=== PATIENT | female | born 1990 | race African-American/Black ===

== ENCOUNTER 2019-10-30 14:38 | Emergency (ER) | payer OTHER ==
[~2019-10-30] VITALS: Ht 162.6 cm; Wt 130.2 kg
--- OUTSIDE RECORDS SUMMARY | 2019-10-30 14:41 | XMS REPORT ---
[facility] Address Unknown Phone Unavailable Care Team Providers Care Liaison Planner Name Role Phone Unavailable Unavailable Problems This patient has no known problems. Allergies, Adverse Reactions, Alerts This patient has no known allergies or adverse reactions. Medications This patient has no known medications. Encounters Start Date/Time End Date/Time Encounter Type Admission Type Attending [facility] Care Facility Care Department Encounter ID 2019-09-23 16:22:00 Inpatient [facility] [id number] 2019-09-20 16:06:00 2019-09-20 16:06:00 Emergency E [facility] [id number] 2019-07-27 22:07:00 2019-07-27 22:07:00 Emergency E [facility] [place] [facility] [id number] 2019-05-14 19:21:00 2019-05-14 19:21:[address] [id number]
--- OUTSIDE RECORDS SUMMARY | 2019-10-30 14:41 | XMS REPORT | Summary of Care ---
Author Author ANTHONY Pritchard, RADHA Vitale Unknown Address Unknown Phone Unavailable Care Team Providers Care Service Delivery Director Name Role Phone NISHA Min.P., SHIFAT Unavailable Unavailable TEA Pritchard, KAILYN Unavailable Unavailable JEANNIE Pritchard, CHIKARA Unavailable Unavailable CAMELIA Pritchard, LISE Unavailable Unavailable ARLETTE Pritchard, GABY Unavailable Unavailable ISAC Pritchard, BOBO Unavailable Unavailable RENETTA Mckeon, MARCOS Unavailable Unavailable DANITA JOB LITHOGRAPHER, GAGE Unavailable Unavailable [facility] SHIF[facility] Unavailable Unavailable TAMIKA POLLARD, LOAN [employer] Unavailable Unavailable LILLIAM POLLARD, FANNY Jenkins Unavailable Unavailable CAIT POLLARD LA, KALENA Unavailable Unavailable MUKESH POLLARD LA, CRYSTAL D Unavailable Unavailable Unavailable Unavailable Functional Status Name Dates Details Functional status health issues are not documented Status: Name Dates Details Cognitive status health issues are not documented Status: Problems Name Dates Details Bacterial vaginitis (616.10, N76.0) Status: Active Depression screening (V79.0, Z13.31) Status: Active Positive depression screening (796.4, Z13.31) Status: Active Nausea and vomiting during (643.90, O21.9) Status: Active Nexplanon removal (V25.43, Z30.46) Status: Active Anemia (285.9, D64.9) Status: Active History of delivery, currently (654.20, O34.219) Status: Active Maternal morbid obesity in first trimester, antepartum (649.13, O99.211) Status: Active Normal (V22.2, Z34.90) Status: Active Encounter for supervision of other normal (V22.1, Z34.80) Status: Active History of pre-eclampsia in prior , currently (V23.49, O09.299) Status: Active exam (V24.2, Z39.2) Status: Active Medications Name Dates Details metroNIDAZOLE 500 MG Oral Tablet TAKE 1 TABLET TWICE DAILY UNTIL FINISHED. Quantity: 14 CAMERON N.P., SHIFAT * Start : 05-Jan-2019 Active Diclegis 10-10 MG Oral Tablet Delayed Release * Refills: 0 Active Diclegis 10-10 MG Oral Tablet Delayed Release TAKE 1 TABLET BEDTIME * Quantity: 30 Refills: 1 NASAB M.DMelisa, KAILYN * Start : 25-Mar-2019 Active Phenazopyridine HCl - 200 MG Oral Tablet TAKE 1 TABLET 3 TIMES DAILY AFTER MEALS NEEDED * Quantity: 60 Refills: 0 IKWUAGWU Vasyl.Shawna, GABY * Start : 28-Mar-2019 Active Vitamin B6 250 MG Oral Tablet TAKE 1 TABLET DAILY DIRECTED. * Quantity: 30 Refills: 0 IKWUAGWU M.Alice., GABY * Start : 28-Mar-2019 Active Aspirin 81 MG Oral Tablet Chewable USE DIRECTED. * Quantity: 30 Refills: 0 ISAC M.Shawna, BOBO * Start : 05-May-2019 Active Vitafol Ultra 29-0.6-0.4-200 MG Oral Capsule TAKE 1 CAPSULE DAILY * Quantity: 30 Refills: 11 CAMELIA M.D., LISE * Start : 14-Jun-2019 Active Aspirin 81 MG Oral Tablet Chewable CHEW AND SWALLOW 1 TABLET DAILY. * Quantity: 30 Refills: 4 CAMELIA M.D., LISE * Start : 14-Jun-2019 Active Ferrous Sulfate 325 (65 Fe) MG Oral Tablet TAKE 1 TABLET 3 TIMES DAILY WITH FOOD. * Quantity: 90 Refills: 3 KOTHARE D.O., MARCOS * Start : 14-Jun-2019 Active Colace 100 MG Oral Capsule TAKE 1 CAPSULE TWICE DAILY. * Quantity: 30 Refills: 0 CAMELIA M.D., LISE * Start : 14-Jun-2019 Active Allergies and Adverse Reactions Name Dates Details No Known Drug Allergies (Allergy) Status: Active Past Medical History Name Dates Details History of H/O: section (V45.89, Z98.891) Status: Resolved History of Known health problems: none (V49.89, Z78.9) Status: Resolved History of Well woman exam (V72.31, Z01.419) Status: Resolved Procedures Procedure Dates Details History of Section Completed Immunization Name Dates Details Influenza Lot #: [id number] exp 03/28/10 on: 03-Jul-2009 Tdap Comments: Approx [id number] Tdap (Adacel) #1 Lot #: [id number] on: 16-Aug-2019 Fluzone INJ Comments: Never Varicella Comments: Childhood Gardasil 9 Intramuscular Suspension Comments: Unknown Social History Name Dates Details - Status: Name Dates Details Never smoker Vital Signs Date Test Result Details :28 BP Systolic 138 mm[Hg] Status: Comments: Location: RUE; Position: Sitting BP Diastolic 88 mm[Hg] Status: Comments: Location: RUE; Position: Sitting Heart Rate 71 /min Status: :25 BP Systolic 142 mm[Hg] Status: Comments: Location: RUE; Position: Sitting BP Diastolic 90 mm[Hg] Status: Comments: Location: RUE; Position: Sitting Heart Rate 77 /min Status: Height 64 in Status: Weight 289.25 lb Status: Body Mass Index Calculated 49.65 kg/m2 Status: Body Surface Area Calculated 2.29 m2 Status: Temperature 98.4 f Status: Comments: Method: Oral [id number] BP Systolic 153 mm[Hg] Status: Comments: Location: RUE; Position: Sitting BP Diastolic 82 mm[Hg] Status: Comments: Location: RUE; Position: Sitting Heart Rate 108 /min Status: Height 64 in Status: Weight 307 lb Status: Body Mass Index Calculated 52.7 kg/m2 Status: Body Surface Area Calculated 2.35 m2 Status: Results Date Description Value Details [id number] [QH] STREPTOCOCCUS, GROUP B CULTURE (Genital Strep Screen) Comments: Source: Vaginal/RectalBody Site: VAG FINAL REPORT No Beta-Hemolytic Streptococci Isolated Plan of Care Name Dates Details Planned Observations Planned Goals not documented Interventions Provided Discussion/Summary* Patient is a 28 s/p rCS and BTL on 09/23/19 c/b GHTN and anemia requiring transfusion. Patient reports she is doing well and denies complaints today * 1. * EPDS- 0 * BCM- BTL, pathology confirmed bilateral tubes present * incision healing well, continue no heavy lifting * Breast and bottle feeding w/o complaint * 2. Anemia * Hgb 7.6 in hospital required 1U transfusion no anemia sxs complaint with IRON * 3. GHTN * - BP 142/90 and repeat 138/88 * - asymptomatic * - continue log at home * RTC Iin 4 weeks * Attending Dr. Aburto * Marion Dennis , R3 * . Instructions Name Dates Details Instructions not documented Encounters Appointment; MEME CAMERON NP Encounter Diagnosis: Problem not documented On: 30-Dec-2018 13:45 Appointment; MEME CAMERON NP Encounter Diagnosis: Problem not documented On: 13-Jan-2019 8:30 Appointment; MEME CAMERON NP Encounter Diagnosis: Problem not documented On: 12-Feb-2019 8:30 Appointment; KAILYN METCALF M.D. Encounter Diagnosis: Problem not documented On: 10-Mar-2019 8:00 Appointment; NELLY VILLARREAL M.D. Encounter Diagnosis: Problem not documented On: 23-Mar-2019 8:30 Appointment; DRIVER MANAGER, COUNSELOR Encounter Diagnosis: Problem not documented On: 25-Mar-2019 13:00 Appointment; DRIVER MANAGER, ROOM4 Encounter Diagnosis: Problem not documented On: 25-Mar-2019 14:15 Appointment; JERAMIE CHAU M.D. Encounter Diagnosis: Problem not documented On: 05-May-2019 10:30 Appointment; GABY CHONG M.D. Encounter Diagnosis: Problem not documented On: 19-May-2019 10:00 Appointment; DRIVER MANAGER, ROOM4 Encounter Diagnosis: Problem not documented On: 10-Jun-2019 8:30 Appointment; LISE DENISE M.D. Encounter Diagnosis: Problem not documented On: 14-Jun-2019 8:00 Appointment; MARCOS JACKSON D.O. Encounter Diagnosis: Problem not documented On: 12-Jul-2019 8:30 Appointment; ALAYNA ARCEO M.D. Encounter Diagnosis: Problem not documented On: 16-Aug-2019 8:30 Appointment; DRIVER MANAGER, ROOM2 Encounter Diagnosis: Problem not documented On: 24-Aug-2019 8:30 Appointment; RICHARD FIGUEROA M.D. Encounter Diagnosis: Problem not documented On: 06-Sep-2019 8:45 Appointment; HERB CRAWFORD M.D. Encounter Diagnosis: Problem not documented On: 20-Sep-2019 14:30 Appointment; MARION DENNIS M.D. Encounter Diagnosis: Problem not documented On: 04-Oct-2019 15:30
[2019-10-30] MEDS: DIPHENHYDRAMINE HCL 25 MG CAP PO STA (14:59)
[2019-10-30] MEDS: FAMOTIDINE 20 MG TAB PO STA (14:59)
[2019-10-30] MEDS: PREDNISONE 20 MG TAB PO STA (14:59)
== END 2019-10-30 15:44 | disposition home or self-care (01) ==
LOC: FSED 14:38
DX: L50.9 Urticaria, unspecified (principal)
CPT/HCPCS: 99283; J7512

== ENCOUNTER 2022-01-20 07:39 | Emergency (ER) | payer OTHER ==
[~2022-01-20] VITALS: Ht 162.6 cm; Wt 112.5 kg
[2022-01-20] MEDS ORDERED: KETOROLAC TROMETHAMINE 30 MG/ML VIAL IV STA (08:43)
[2022-01-20] MEDS ORDERED: DICYCLOMINE HCL10 MG PO (09:50)
[2022-01-20 10:07] VITALS: BP 118/91
== END 2022-01-20 10:09 | disposition home or self-care (01) ==
LOC: FSED 08:00
DX: R10.9 Unspecified abdominal pain (principal); D64.9 Anemia, unspecified
CPT/HCPCS: 74176; 80048; 80076; 81003; 81025; 85025; 99283

== ENCOUNTER 2022-06-23 22:54 | Emergency (ER) | payer OTHER ==
[~2022-06-23] VITALS: Ht 162.6 cm; Wt 122.0 kg
[~2022-06-23 22:54] MED LIST: DICYCLOMINE HCL10 MG PO
[2022-06-23] MEDS ORDERED: KETOROLAC TROMETHAMINE 30 MG/ML VIAL IM STA (23:27)
[2022-06-23] MEDS ORDERED: NAPROSYN500 MG PO (23:29)
[2022-06-23] MEDS ORDERED: KETOROLAC TROMETHAMINE 30 MG/ML VIAL ONE (23:42)
[2022-06-23 23:44] VITALS: BP 130/74
== END 2022-06-23 23:44 | disposition home or self-care (01) ==
LOC: FSED 23:02
DX: R51.9 Headache, unspecified (principal); D64.9 Anemia, unspecified
CPT/HCPCS: 96372; 99282; J1885

== ENCOUNTER 2022-09-02 03:42 | Emergency (ER) | payer OTHER ==
[~2022-09-02] VITALS: Ht 162.6 cm; Wt 129.3 kg
[~2022-09-02 03:42] MED LIST changes: +NAPROSYN500 MG PO
[2022-09-02] MEDS ORDERED: EAR DROPS15 ML LEFT EAR (04:16)
[2022-09-02 04:30] VITALS: BP 143/89
== END 2022-09-02 04:30 | disposition home or self-care (01) ==
LOC: FSED 04:10
DX: S00.412A Abrasion of left ear, initial encounter (principal); W22.8XXA Striking against or struck by other objects, initial encounter; Y92.89 Other specified places as the place of occurrence of the external cause; D64.9 Anemia, unspecified; F17.210 Nicotine dependence, cigarettes, uncomplicated
CPT/HCPCS: 99282

== ENCOUNTER 2022-12-18 20:35 | Emergency (ER) | payer OTHER ==
[~2022-12-18] VITALS: Ht 162.6 cm; Wt 121.6 kg
[~2022-12-18 20:35] MED LIST changes: +EAR DROPS15 ML LEFT EAR
[2022-12-18] MEDS ORDERED: IBUPROFEN 600 MG TAB PO STA (22:27)
[2022-12-18] MEDS ORDERED: AMOXICILLIN/CLAVULANATE K 500 MG TAB PO ONE (22:30)
[2022-12-18] MEDS ORDERED: AMOXICILLIN500 MG PO (22:51)
[2022-12-18] MEDS ORDERED: AMOXICILLIN/CLAVULANATE K 875 MG TAB ONE (23:02)
== END 2022-12-18 23:30 | disposition home or self-care (01) ==
LOC: FSED 21:24
DX: R50.9 Fever, unspecified (principal); J02.0 Streptococcal pharyngitis; D64.9 Anemia, unspecified
CPT/HCPCS: 83518; 87400; 99283

== ENCOUNTER 2023-02-26 17:40 | Emergency (ER) | payer OTHER ==
[~2023-02-26] VITALS: Ht 162.6 cm; Wt 112.5 kg
[~2023-02-26 17:40] MED LIST changes: +AMOXICILLIN500 MG PO
[2023-02-26 17:53] VITALS: O2SAT 99
[2023-02-26] MEDS ORDERED: NAPROSYN500 MG PO (18:55)
== END 2023-02-26 19:14 | disposition home or self-care (01) ==
LOC: FSED 17:42
DX: R07.89 Other chest pain (principal); S46.812A Strain of other muscles, fascia and tendons at shoulder and upper arm level, left arm, initial encounter; X50.0XXA Overexertion from strenuous movement or load, initial encounter; D64.9 Anemia, unspecified; F17.210 Nicotine dependence, cigarettes, uncomplicated
CPT/HCPCS: 99282

== ENCOUNTER 2023-09-02 13:09 | Emergency (ER) | payer OTHER ==
[~2023-09-02] VITALS: Ht 162.6 cm; Wt 117.0 kg
[~2023-09-02 13:09] MED LIST changes: +CEPHALEXIN500 MG PO; +DOXYCYCLINE HY100 MG PO; +MUPIROCIN22 GM TOP
[2023-09-02 13:15] VITALS: O2SAT 99
[2023-09-02] MEDS ORDERED: KETOROLAC TROMETHAMINE 60 MG/2 ML VIAL IM ONE (13:30)
[2023-09-02] MEDS ORDERED: KETOROLAC TROMETHAMINE 60 MG/2 ML VIAL ONE (13:56)
[2023-09-02] MEDS ORDERED: NAPROSYN500 MG PO (14:18)
[2023-09-02 14:26] VITALS: PULSE 77; RESP 16
== END 2023-09-02 14:28 | disposition home or self-care (01) ==
LOC: FSED 13:15
DX: S83.8X1A Sprain of other specified parts of right knee, initial encounter (principal); X50.1XXA Overexertion from prolonged static or awkward postures, initial encounter; Y93.01 Activity, walking, marching and hiking; Y92.89 Other specified places as the place of occurrence of the external cause; D64.9 Anemia, unspecified; F17.210 Nicotine dependence, cigarettes, uncomplicated
CPT/HCPCS: 73562; 99283; J1885